=== PATIENT | female | born 1985 | race Caucasian/White ===

== ENCOUNTER 2022-08-24 10:22 | Outpatient (CLI) | payer OTHER, SELFPAY ==
--- NOTE | ~2022-08-24 | XR_ITS ---
EXAMINATION: XR hysterosalpingogram DATE: 08/24/2022 12:41 INDICATION: Infertility. TECHNIQUE: Fluoroscopy was performed by the radiologist during contrast infusion into the endometrial cavity of the uterus by the primary physician. Fluoroscopy exposure time was 0.4 minutes. The total number of images was 4. FINDINGS: The intrauterine cavity is normal in morphology. There is no opacification of the fallopian tubes. IMPRESSION: 1. Occluded fallopian tubes. Reviewed, dictated and finalized at location A.
[2022-08-24 11:43] LABS: Beta HCG Quantitative < 2.39 mIU/ML
== END 2022-08-24 10:23 | disposition home or self-care (01) ==
PROVIDERS: Visit Provider Obstetrics & Gynecology Gynecology
DX: Z31.49 Encounter for other procreative investigation and testing (principal)
CPT/HCPCS: 36415; 58340; 74740; 84702

== ENCOUNTER → 2022-12-18 10:45 | Outpatient (CLI) | payer OTHER, SELFPAY ==
--- NOTE | ~2022-12-18 | US_ITS ---
EXAMINATION: US OB transvaginal DATE: 12/18/2022 11:14 INDICATION: Spotting. First trimester. TECHNIQUE: Real-time transvaginal pelvic ultrasound was performed. COMPARISON: None. FINDINGS: The uterus measures 9.3 x 5.8 x 6.0 cm. There is an intrauterine gestational sac. A yolk sac is ident ified. The crown rump length measures 7 mm, which correlates with an estimated gestational age of 6 weeks and 4 day(s) (+/-) 4 day(s). heart motion is identified measuring 119 beats per min suraj (bpm) by M-mode Doppler. There is a small subchorionic hematoma measuring 1.7 x 0.8 x 0.7 cm. The right ovary measures 2.3 x 1.9 x 2.1 cm. The left ovary is not visualized. There is no free fluid in the pelvis. IMPRESSION: 1. Single living intrauterine gestation with estimated date of delivery of 08/09/2023. 2. Small subchorionic hematoma. Reviewed, dictated and finalized at location A. IMPRESSION: 1. Single living intrauterine gestation with estimated date of delivery of 07/13. 2. Small subchorionic hematoma.
== END ==
PROVIDERS: PCP Obstetrics & Gynecology Gynecology; Visit Provider Obstetrics & Gynecology Gynecology
DX: O20.8 Other hemorrhage in early pregnancy (principal); Z3A.01 Less than 8 weeks gestation of pregnancy
CPT/HCPCS: 76817

== ENCOUNTER → 2023-01-02 13:15 | Outpatient (CLI) | payer OTHER, SELFPAY ==
--- NOTE | ~2023-01-02 | US_ITS ---
EXAMINATION: US OB transvaginal DATE: 01/02/2023 13:39 INDICATION: Subchorionic hematoma during first trimester TECHNIQUE: Real-time pelvic transabdominal and transvaginal ultrasound was performed. COMPARISON: None. FINDINGS: The uterus measures 10 x 6.7 x 7 cm. There is an intrauterine gestational sac. There is a 1 .8 x 0.5 x 0.4 cm hypoechoic area adjacent to the gestational sac which previously measured 1.7 x 0.8 x 0.7 cm. A yolk sac is identified. heart motion is identified measuring 176 beats per minute (bpm) by M-mode Doppler. The crown rump length measures 2.3 cm, which correlates with an estima carlos gestational age of 9 weeks and 0 day(s) (+/-) 6 day(s). The ovaries are not visualized however no adnexal abnormality is seen. There is no free fluid in the pelvis. IMPRESSION: 1. Small subchorionic hematoma with slight decrease in size. Reviewed, dictated and finalized at location A.
== END ==
PROVIDERS: PCP Obstetrics & Gynecology Gynecology; Visit Provider Obstetrics & Gynecology Gynecology
DX: O36.8910 Maternal care for other specified fetal problems, first trimester, not applicable or unspecified (principal); Z3A.00 Weeks of gestation of pregnancy not specified
CPT/HCPCS: 76817

== ENCOUNTER → 2023-02-03 09:24 | Outpatient (CLI) | payer OTHER, SELFPAY ==
--- NOTE | ~2023-02-03 | US_ITS ---
EXAMINATION: US OB <= 14 weeks fetus DATE: 02/03/2023 09:47 INDICATION: Follow-up subchorionic hematoma TECHNIQUE: Real-time transabdominal obstetric ultrasound. FINDINGS: Comparison to multiple prior studies sequentially, with oldest reviewed study dated 2022. The uterus measures 13.6 x 8.9 x 10.3 cm. There is an intrauterine gestational sac, with pole i dentified. The crown rump length measures 7.1 cm, which correlates with a estimated gestational age of 13 weeks 2 days. heart tones are identified measuring 169 bpm. The placenta appears comple x and heterogeneous with ill-defined margins which may relate to underlying subchorionic hemorrhage o r contraction. IMPRESSION: 1. SL IUP with an EGA of 13 weeks, 2 days (EDC by current initial ultrasound of 08/09/2023). 2: Complex heterogeneous appearance to the placenta with ill-defined margins which may represent und erlying subchorionic hemorrhage versus contraction. Recommend attention to this area on subsequent ex amination. Reviewed, dictated and finalized at location A. IMPRESSION: 1. SL IUP with an EGA of 13 weeks, 2 days (EDC by current initial ultrasound of 08/09/2023). 2: Complex heterogeneous appearance to the placenta with ill-defined margins w hich may represent underlying subchorionic hemorrhage versus contraction. Recom mend attention to this area on subsequent examination.
== END ==
PROVIDERS: PCP Obstetrics & Gynecology Gynecology; Visit Provider Obstetrics & Gynecology Gynecology
DX: O36.8910 Maternal care for other specified fetal problems, first trimester, not applicable or unspecified (principal); Z3A.13 13 weeks gestation of pregnancy
CPT/HCPCS: 76801

== ENCOUNTER → 2023-03-02 15:17 | Outpatient (CLI) | payer OTHER, SELFPAY ==
--- NOTE | ~2023-03-02 | US_ITS ---
EXAMINATION: US OB limited DATE: 03/02/2023 15:39 INDICATION: Subchorionic hematoma follow-up during second trimester . TECHNIQUE: Real-time ultrasound of the pelvis was performed. The interpreting radiologist was not pre sent for the study. COMPARISON: 02/03/2023 FINDINGS: There is a single living fetus in variable presentation. The placenta is anterior and 1.1 c m from the internal cervical os. The measured cervical length is 4.1 cm. No persistent subchorionic h ematoma is identified. cardiac activity and movement are noted. heart rate is 164 b eats per minute (bpm). The amniotic fluid index is subjectively normal. IMPRESSION: 1. Single living fetus in variable presentation. 2. No persistent subchorionic hematoma identified. 3. Low-lying placenta. Reviewed, dictated and finalized at location F.
== END ==
PROVIDERS: PCP Obstetrics & Gynecology Gynecology; Visit Provider Obstetrics & Gynecology Gynecology
DX: O36.8910 Maternal care for other specified fetal problems, first trimester, not applicable or unspecified (principal); O44.40 Low lying placenta NOS or without hemorrhage, unspecified trimester; Z3A.00 Weeks of gestation of pregnancy not specified
CPT/HCPCS: 76815

== ENCOUNTER 2023-06-26 14:15 | Outpatient (RCR) | payer OTHER, SELFPAY ==
[2023-06-26 15:18] VITALS: BP 134/65; PULSE 59
== END 2023-09-24 23:59 | disposition home or self-care (01) ==
LOC: ANHOBOP 14:15
PROVIDERS: Visit Provider Obstetrics & Gynecology Gynecology
DX: O24.419 Gestational diabetes mellitus in pregnancy, unspecified control (principal); O09.513 Supervision of elderly primigravida, third trimester; Z3A.34 34 weeks gestation of pregnancy
CPT/HCPCS: 59025

== ENCOUNTER 2023-07-05 10:27 | Outpatient (CLI) | payer OTHER, SELFPAY ==
[2023-07-05 10:49] VITALS: BMI 31.5
[2023-07-05 11:01] VITALS: BP 120/56; PULSE 60
[2023-07-05 11:03] LABS: Basophils Absolute Auto 0.1 K/mm3 (0.0-0.1); Basophils Percent Auto 0.5 % (0.2-1.2); Eosinophils Absolute Auto 0.1 K/mm3 (0-0.3); Eosinophils Percent Auto 1.2 % (0-4.4); Hematocrit 38.6 % (37.0-47.0); Hemoglobin 12.2 g/dL (12.0-15.0); Immature Granulocyte Absolute 0.04 K/mm3 (0.00-0.031); Immature Granulocyte Percent A 0.4 % (0-0.5); Lymphocytes Absolute Auto 2.59 K/mm3 (0.9-3.2); Lymphocytes Percent Auto 27.2 % (18.3-44.2); Mean Corpuscular HGB Conc 31.6 g/dl (32-36); Mean Corpuscular Hemoglobin 28.2 pg (26-34); Mean Corpuscular Volume 89.4 fl (80-100); Mean Platelet Volume 11.3 fl (7.4-10.4); Monocytes Absolute Auto 0.7 K/mm3 (0.1-0.6); Monocytes Percent Auto 7.4 % (2.6-8.5); Neutrophils Percent Auto 63.3 % (45.5-73.1); Platelet Count Result 196 k/mm3 (150-375); Red Blood Count 4.32 M/mm3 (4.2-5.4); Red Cell Distribution Width 14.7 % (11.5-14.5); White Blood Count 9.5 K/mm3 (4.5-10.0)
[2023-07-05 11:10] LABS: Alanine Aminotransferase 12 U/L (6-35); Albumin Level 3.7 g/dL (3.5-5.1); Alkaline Phosphatase 113 U/L (38-126); Anion Gap 9 mmol/L (8-16); Aspartate Amino Transferase 20 U/L (14-36); Bilirubin,Total 0.5 mg/dL (0.2-1.3); Blood Urea Nitrogen 8 mg/dL (7-17); Calcium 9.2 mg/dL (8.4-10.2); Carbon Dioxide 19 mmol/L (22-30); Chloride 105 mmol/L (98-107); Creatinine Urine 24.8 mg/dL; Estimated CRCL calculation 117 ml/min; Estimated Glomerular Filt Rate > 60; Glucose 94 mg/dL (65-110); Potassium 3.7 mmol/L (3.4-5.0); Sodium 133 mmol/L (137-145); Total Protein Urine Random 11 mg/dL; Ur Ttl Prot Creatinine Ratio 0.44 mg/mg (0-0.20); Uric Acid 3.1 mg/dL (2.5-7.5)
[2023-07-05 11:16] VITALS: BP 111/57; PULSE 61
[2023-07-05 11:23] LABS: Appearance Urine Clear (Clear); Bacteria Urine 3+ /hpf; Bilirubin Urine Negative (Negative); Blood Urine Negative (Negative); Color Urine Yellow (Yellow); Glucose Urine UA Negative (Negative); Ketones Urine Negative (Negative); Leukocyte Esterase Ur 1+ LEU/UL (Negative); Need Manual Microscopic Reviewed; Nitrate Urine Negative (Negative); Non Pathogenic Casts 0-2; Protein Urine Negative (Negative); RBC Urine 0-2 /hpf (0-2); Specific Grav Ur 1.006 (1.001-1.035); Squamous Epithelial Cell Urine Few /hpf (Few); Urobilinogen Urine 0.2 mg/dL (<2.0)
[2023-07-05 11:25] LABS: Add Urine Microscopic? YES
[2023-07-05 11:30] VITALS: BP 111/68; PULSE 72
[2023-07-05 11:48] VITALS: BP 111/68; PULSE 65
== END 2023-07-05 11:50 | disposition home or self-care (01) ==
LOC: ANHOBOP 10:29 → ANHOBPP 10:29
PROVIDERS: Visit Provider Obstetrics & Gynecology Gynecology
DX: O13.9 Gestational [pregnancy-induced] hypertension without significant proteinuria, unspecified trimester (principal); Z3A.00 Weeks of gestation of pregnancy not specified
CPT/HCPCS: 36415; 59025; 80053; 81001; 81050; 82570; 82575; 84156; 84550; 85025; 87086; 99199

== ENCOUNTER 2023-07-06 12:35 | Outpatient (NON) | payer OTHER, SELFPAY ==
[2023-07-06 12:52] VITALS: BMI 31.5
[2023-07-06 13:53] LABS: Collection Time Urine 24 HOURS
[2023-07-06 13:54] LABS: Total Volume 24 Hour Urine 1900 ml
[2023-07-06 14:01] LABS: Creatinine Clearance Urine 136.6 ml/min (75-125); Creatinine Urine 69.1 mg/dL; Patient Weight 189 Lbs; Total Protein Urine 24 Hr 171 mg/24hr (28-141); Total Protein Urine Random 9 mg/dL
== END 2023-07-06 12:36 | disposition home or self-care (01) ==
LOC: ANHOBOP 12:46
PROVIDERS: Visit Provider Obstetrics & Gynecology Gynecology
DX: Z34.90 Encounter for supervision of normal pregnancy, unspecified, unspecified trimester (principal); Z3A.00 Weeks of gestation of pregnancy not specified
CPT/HCPCS: 81050; 82575; 84156

== ENCOUNTER 2023-07-23 13:48 | Outpatient (CLI) | payer OTHER, SELFPAY ==
[2023-07-23 14:31] VITALS: BP 123/77; PULSE 75
[2023-07-23 14:44] LABS: Basophils Percent Auto 0.3 % (0.2-1.2); Eosinophils Absolute Auto 0.1 K/mm3 (0-0.3); Eosinophils Percent Auto 0.5 % (0-4.4); Hematocrit 40.9 % (37.0-47.0); Hemoglobin 13.1 g/dL (12.0-15.0); Immature Granulocyte Absolute 0.05 K/mm3 (0.00-0.031); Immature Granulocyte Percent A 0.5 % (0-0.5); Lymphocytes Percent Auto 24.2 % (18.3-44.2); Mean Corpuscular Hemoglobin 28.7 pg (26-34); Mean Corpuscular Volume 89.7 fl (80-100); Mean Platelet Volume 11.8 fl (7.4-10.4); Monocytes Absolute Auto 0.6 K/mm3 (0.1-0.6); Monocytes Percent Auto 5.8 % (2.6-8.5); Neutrophils Absolute Auto 7.1 K/mm3 (1.3-6.7); Neutrophils Percent Auto 68.7 % (45.5-73.1); Platelet Count Result 165 k/mm3 (150-375); Red Blood Count 4.56 M/mm3 (4.2-5.4); Red Cell Distribution Width 16.2 % (11.5-14.5); White Blood Count 10.3 K/mm3 (4.5-10.0)
[2023-07-23 14:46] VITALS: BP 127/49; PULSE 61
[2023-07-23 14:55] LABS: Alanine Aminotransferase 12 U/L (6-35); Albumin Level 3.8 g/dL (3.5-5.1); Alkaline Phosphatase 114 U/L (38-126); Anion Gap 6 mmol/L (8-16); Aspartate Amino Transferase 19 U/L (14-36); Bilirubin,Total 0.5 mg/dL (0.2-1.3); Blood Urea Nitrogen 13 mg/dL (7-17); Calcium 9.6 mg/dL (8.4-10.2); Carbon Dioxide 21 mmol/L (22-30); Chloride 106 mmol/L (98-107); Estimated Glomerular Filt Rate > 60; Glucose 91 mg/dL (65-110); Potassium 3.8 mmol/L (3.4-5.0); Sodium 133 mmol/L (137-145); Uric Acid 3.3 mg/dL (2.5-7.5)
[2023-07-23 14:58] LABS: Appearance Urine Cloudy (Clear); Bacteria Urine 4+ /hpf; Bilirubin Urine Negative (Negative); Blood Urine Negative (Negative); Color Urine Yellow (Yellow); Glucose Urine UA Negative (Negative); Ketones Urine Trace mg/dL (Negative); Leukocyte Esterase Ur 2+ LEU/UL (Negative); Need Manual Microscopic Reviewed; Nitrate Urine Negative (Negative); Non Pathogenic Casts 0-2; Protein Urine Negative (Negative); RBC Urine 0-2 /hpf (0-2); Specific Grav Ur 1.011 (1.001-1.035); Squamous Epithelial Cell Urine Few /hpf (Few); Urobilinogen Urine 0.2 mg/dL (<2.0); WBC Urine 51-100 /hpf
[2023-07-23 15:00] VITALS: BP 116/70; PULSE 78
[2023-07-23 15:00] LABS: Add Urine Microscopic? YES
[2023-07-23 15:11] LABS: Creatinine Urine 43.2 mg/dL; Total Protein Urine Random 8 mg/dL; Ur Ttl Prot Creatinine Ratio 0.19 mg/mg (0-0.20)
[2023-07-23 15:16] VITALS: BP 117/60; PULSE 75
[2023-07-23 15:31] VITALS: BP 124/70; PULSE 67
[2023-07-23 15:46] VITALS: BP 119/72; PULSE 73
== END 2023-07-23 16:13 | disposition home or self-care (01) ==
LOC: ANHOBOP 14:13 → ANHOBPP 14:14
PROVIDERS: Visit Provider Obstetrics & Gynecology Gynecology
DX: O13.9 Gestational [pregnancy-induced] hypertension without significant proteinuria, unspecified trimester (principal); Z3A.00 Weeks of gestation of pregnancy not specified
CPT/HCPCS: 36415; 59025; 80053; 81001; 82570; 84156; 84550; 85025; 87086; 87088; 99199

== ENCOUNTER 2023-07-26 23:20 | Inpatient (IN) | payer OTHER, SELFPAY ==
[2023-07-26 23:56] VITALS: BMI 30.8
[2023-07-27] VITALS (9 sets, daily range): BP systolic 113–138; BP diastolic 63–89; PULSE 54–121; RESP 16; TEMP 36.4–37.4; O2SAT 95–99
--- NOTE | 2023-07-27 00:01 | LDADM ---
This patient, Renetta Ventura, was admitted to Labor/Delivery/Recovery 106 on 07/26/23 at 23:20. Plans for labor, pain management and were discussed with patient. Patient/family oriented to hospital policies and general routines including ID bracelet, bed and alarms, visiting hours, pain management, procedures, bathroom and other care routines, personal items, smoking policy, room service/diet and guest tray routines, infant security routines, and visiting hours. Patient/Family are encouraged to report perceived risks to care and to ask questions if they do not understand what they are told or what they should do. See OBIX for further documentation.
[2023-07-27] MEDS: LACTATED RINGERS 1,000 ML 125 ML IV CONT (00:48)
[2023-07-27] MEDS: AMPICILLIN 2 GM/NS 100 ML 2 GM/100 ML BAG IVPB (00:49)
[2023-07-27 03:16] LABS: Glucose Point of Care 98 mg/dl (65-105)
[2023-07-27 03:16] LABS: Glucose Point of Care 107 mg/dl (65-105)
[2023-07-27] MEDS: OXYTOCIN 30 UNITS/NS 500 ML 30 UNITS/500 ML BAG 999 UNITS IV CONT (03:54)
[2023-07-27 04:04] LABS: Basophils Absolute Auto 0.1 K/mm3 (0.0-0.1); Basophils Percent Auto 0.4 % (0.2-1.2); Eosinophils Absolute Auto 0.1 K/mm3 (0-0.3); Hematocrit 37.9 % (37.0-47.0); Hemoglobin 12.1 g/dL (12.0-15.0); Immature Granulocyte Absolute 0.06 K/mm3 (0.00-0.031); Immature Granulocyte Percent A 0.5 % (0-0.5); Lymphocytes Absolute Auto 4.12 K/mm3 (0.9-3.2); Lymphocytes Percent Auto 32.8 % (18.3-44.2); Mean Corpuscular HGB Conc 31.9 g/dl (32-36); Mean Corpuscular Hemoglobin 28.4 pg (26-34); Mean Platelet Volume 11.6 fl (7.4-10.4); Monocytes Percent Auto 7.8 % (2.6-8.5); Neutrophils Absolute Auto 7.3 K/mm3 (1.3-6.7); Neutrophils Percent Auto 57.5 % (45.5-73.1); Platelet Count Result 168 k/mm3 (150-375); Red Blood Count 4.26 M/mm3 (4.2-5.4); Red Cell Distribution Width 16.1 % (11.5-14.5); White Blood Count 12.6 K/mm3 (4.5-10.0)
--- NOTE | 2023-07-27 04:09 | PM.OBPRVD ---
OB - Vaginal Delivery Note Procedure Delivery date: 07/27/23 Events: Gestational Diabetes (GDMA1) Induction method: None Delivery monitor: External FHT and External Uterine Route of delivery: Episiotomy description: None Laceration Description: Perineal - 1st Degree and Superficial (right labia) Delivery repair: vicryl (3-0) Specimen: No Quantitative Blood Loss (ml): 100 Anesthesia type: Local Disposition: Floor Complications: No immediate complications Baby Date of : 07/27/23 Weeks of gestation at delivery: 38 Infant gender: Male Weight (pounds): 7 Weight (ounces): 8 presentation: vertex position: Left Occiput Anterior Placenta delivery description: Spontaneous Cord Vessel Description: 3 Vessels and Delayed Cord Clamping score one minute: 8 score five minutes: 9
--- NOTE | 2023-07-27 04:10 | PM.OBDSVD ---
DS: Admitting Diagnosis Discharge Date 07/28/23 Admitting Diagnosis IUP 38 / in active labor GDMA1 DS: Discharge Diagnosis Discharge Diagnosis (1) (normal spontaneous vaginal delivery): Code(s): O80 - Encounter for full-term uncomplicated delivery Status: Acute OB - DS: Summary OB Procedures : NST, Ultrasound and Other (GDM management) OB Procedures Intrapartum: Spontaneous Vag Delivery OB Procedures: : None Peripartum Data Delivery Method: Natural Vaginal Laceration Description: Perineal - 1st Degree and Superficial (right labia) Episiotomy description: None complications: none Status at Discharge Functional status at discharge: independent ambulation Overall status at discharge: patient is progressing back to baseline Time Spent with Patient Time attestation: Total time spent providing and/or coordinating discharge services: DS: Data Data Completed and Pending Labs on day of discharge: Labs from last 24 hours 07/27/23 07/27/23 07/27/23 03:07 00:54 00:51 WBC 12.6 H RBC 4.26 Hgb 12.1 Hct 37.9 MCV 89.0 MCH 28.4 MCHC 31.9 L RDW 16.1 H Plt Count 168 MPV 11.6 H Immature Gran % (Auto) 0.5 Neut % (Auto) 57.5 Lymph % (Auto) 32.8 Mccracken % (Auto) 7.8 Eos % (Auto) 1.0 Baso % (Auto) 0.4 Lymph # (Auto) 4.12 H Mccracken # (Auto) 1.0 H Eos # (Auto) 0.1 Baso # (Auto) 0.1 Abs Immat Gran (auto) 0.06 H Absolute Neuts (auto) 7.3 H Absolute Nucleated RBC 0.000 Nucleated RBC % 0.0 POC Capillary Glucose 107 H 98 RPR 07/27/23 00:11 WBC RBC Hgb Hct MCV MCH MCHC RDW Plt Count MPV Immature Gran % (Auto) Neut % (Auto) Lymph % (Auto) Mccracken % (Auto) Eos % (Auto) Baso % (Auto) Lymph # (Auto) Mccracken # (Auto) Eos # (Auto) Baso # (Auto) Abs Immat Gran (auto) Absolute Neuts (auto) Absolute Nucleated RBC Nucleated RBC % POC Capillary Glucose RPR Pending Discharge Plan Discharge Attending physician on discharge: Lissy Tylerarging Clinician: Modesto Landon Anticipated Discharge Date/Time: 07/28/23 04:12 Patient Disposition: Home, Self-Care Activity: may shower and pelvic rest Diet: regular Discharge Instructions: Education: Mom and Baby Guide Given to: Mother Follow-Up: Call your delivering provider's office for an appointment to be seen in: 6 Weeks Mom and baby should come to the [facility] for the follow-up appointment. Appointment Date/Time: July 31, 2023 at 10:00 am What to expect at your follow-up visit: Call [phone] if you are unable to keep your appointment time. BREAST CARE: * Wear a snug supportive bra. * For engorgement discomfort: Breast Feeding: * Apply warm moist washcloths * Express milk as needed to relieve engorgement * Wear loose clothing Bottle Feeding: * May apply ice packs * For sore nipples: * Identify correct latch-on * Apply warm moist washcloths before and after nursing * Air dry nipples after nursing * May apply Lansinoh cream to nipples EPISIOTOMY/PERINEAL CARE: * Until bleeding stops, use your jessica bottle after urinating * Change your pad frequently throughout the day * You may take sitz baths several times a day (fill your bathtub with warm water and soak for 20 minutes.) Do NOT bathe in the water * No tub baths until seen by your physician - You may shower ACTIVITY: * Rest as much as possible. * Do not exercise or lift anything heavier than your baby (such as laundry or other children.) * Avoid stairs or driving as much as possible. * Do not put anything into the vagina. No douching, tampons, or sexual activity until seen by physician. NOTIFY PHYSICIAN IF YOU HAVE ANY QUESTIONS OR IF ANY OF THE FOLLOWING SYMPTOMS OCCUR: * If your episiotomy or inc
[2023-07-27] MEDS: OXYTOCIN 30 UNITS/NS 500 ML 30 UNITS/500 ML BAG 125 UNITS IV CONT (04:30)
[2023-07-27] MEDS: WITCH HAZEL 40 PADS 1 PAD TOPICAL (06:47)
[2023-07-27] MEDS: BENZOCAINE 20% AER SPR (*SP) 56 GM CAN 1 SPRAY TOPICAL (06:47)
--- NOTE | 2023-07-27 07:01 | PC.NURSE ---
Patient transferred to post room #277 via wheel chair. Support person present. Oriented to unit, room, information board, rooming in, admission packet and security measures. Patient verbalizes understanding.
[2023-07-27] MEDS: MULTIVIT/MIN/PREN/FOL AC/IRON TABLET 1 TAB PO (12:45)
[2023-07-27] MEDS: DOCUSATE SODIUM 100 MG CAPSULE PO (12:45)
[2023-07-27] MEDS: IBUPROFEN 600 MG TABLET PO (12:45)
--- NOTE | 2023-07-27 15:55 | PC.NURSE ---
[id number] Introductions were made, then consulted with patient to assess needs related to . Mother led the conversation with her?plans to feed?her , the?experience so far, and if confident of her skills having breastfed before. Encouraged understanding of the benefits of skin to skin (demonstrating unwrapping infant and placing upright on her chest), stimulating with massage touch, changing positions to encourage wakefulness, how to watch for early feeding cues, responsive feeding, feeding on demand (aiming for 8-12 times in 24 hours, about every 2-3 hours), milk production, building/maintaining a milk supply, duration of feeding, signs of adequate intake/output and how to record on the feeding sheet. Mother works well with her infant with encouragement and education. Reviewed, discussed, and demonstrated hand expression. Both breast expressed large drops of colostrum that was finger fed to infant. Infant is less than 6 hours old and is sleepy. Mother states the first feeding went great. has now had a 2nd large meconium stool diaper and at least one void in life. Encouraged mother is offer colostrum and the breast frequently. Watching for feeding cues for responsive feeding. Reminded mother to protect the nipple with optimal positioning, latching with big, open, wide gape. Reviewed comfort measures of healing with a warm, wet washcloth to rinse breast, then leave open to air-dry, good handwashing when or touching the breast/nipples to prevent infection. Mother voiced understanding of skin to skin, stimulating with massage touch, responsive feedings, hand expressed colostrum, talking to infant to encourage if it has been 2 -2.5 hours since the start of the last , to call if does not latch, or if there is discomfort with . Resources used for education were facilitated with the visual educational handouts/ tool/mom and baby guide. Inpatient/outpatient resources provided with feeding sheet, name written on the communication board, and the mom/baby guide. Parents voiced understanding of information, demonstrated learning and will call if there is a request for assistance. Reported to the Primary RN.
[2023-07-27] MEDS: ACETAMINOPHEN 325 MG TABLET 650 MG PO (16:38)
[2023-07-28 05:15] LABS: Hematocrit 38.1 % (37.0-47.0); Hemoglobin 12.4 g/dL (12.0-15.0)
--- NOTE | 2023-07-28 06:57 | PM.OBPNVD ---
OB - PN: Subj Subjective Date/time seen: 07/28/23 06:57 Patient comments: no complaints and pain well controlled baby status: doing well OB - PN: Obj Data Labs 07/28/23 04:09 Labs: Laboratory Results - last 24 hr 07/28/23 04:09 Hgb 12.4 Hct 38.1 OB - PN A/P Plan day: 1 Plan: routine care Time Spent With Patient Time: Total time spent is greater than 50% in coordination of care (as documented) at patient's floor/unit and/or counseling patient: Time with patient: less than 15 minutes Exam Const: General: cooperative, healthy appearing and comfortable Nutritional Appearance: average body habitus Orientation/consciousness: oriented to person, oriented to place and oriented to time HENMT: Head: normal to inspection GI: Inspection: normal to inspection
[2023-07-28 07:30] VITALS: BP 117/72; PULSE 63; RESP 16; TEMP 36.7; O2SAT 98
[2023-07-28] MEDS: IBUPROFEN 600 MG TABLET PO (07:30)
[2023-07-28] MEDS: DOCUSATE SODIUM 100 MG CAPSULE PO ×2 (07:30→15:18)
[2023-07-28] MEDS: MULTIVIT/MIN/PREN/FOL AC/IRON TABLET 1 TAB PO (07:30)
[2023-07-28] MEDS: ACETAMINOPHEN 325 MG TABLET 650 MG PO (15:17)
[2023-07-28 23:10] LABS: Rapid Plasma Reagin Non-Reactive (NonReactive)
[2023-07-30 10:38] VITALS: BP 126/78; PULSE 73; RESP 18; TEMP 36.7; O2SAT 97
== END 2023-07-28 20:12 | disposition home or self-care (01) | DRG 807 ==
LOC: ANHLDR 07-27 04:12 → ANHOB2 07-27 11:37 → ANHLDR 07-31 07:58 → ANHOB2 07-31 07:58
PROVIDERS: Admitting Provider Obstetrics & Gynecology Gynecology; Visit Provider Obstetrics & Gynecology
DX: O24.429 Gestational diabetes mellitus in childbirth, unspecified control (principal); Z37.0 Single live birth; O70.0 First degree perineal laceration during delivery; O99.824 Streptococcus B carrier state complicating childbirth; Z3A.38 38 weeks gestation of pregnancy
CPT/HCPCS: 36415; 59025; 80053; 81001; 82570; 82948; 84156; 84550; 85014; 85018; 85025; 86592; 86850; 86900; 86901; 87086; 99199; A9270; J0290; J2590; J7120